=== PATIENT | female | born 1975 | race Two or more races ===

== ENCOUNTER 2023-04-03 09:21 | Inpatient (IN) | payer OTHER ==
[~2023-04-03] VITALS: Ht 167.6 cm; Wt 24.0 kg
[2023-04-04] MEDS ORDERED: LOSARTAN-HCTZ1 EAC2 PO (10:01)
[2023-04-04] MEDS ORDERED: SYNTHROID150 MCG PO (10:01)
[2023-04-08] MEDS ORDERED: NAPR500T14 PO (13:02)
[2023-04-08] MEDS ORDERED: Tylenol #3 PO (13:02)
== END 2023-04-08 13:32 | disposition home or self-care (01) | DRG 743 ==
LOC: SURG 04-06 08:45 → OB/GYN 04-06 11:36 → O/R 04-06 11:36 → OB/GYN 04-06 20:31 → SURG 04-06 21:30 → OB/GYN 04-08 13:32
PROVIDERS: ADMIT Obstetrics & Gynecology; ATTEND Obstetrics & Gynecology
PROC: 0UT7FZZ Resection of Bilateral Fallopian Tubes, Via Natural or Artificial Opening With Percutaneous Endoscopic Assistance (ICD-10-PCS; 2023-04-06)
PROC: 0DNU4ZZ Release Omentum, Percutaneous Endoscopic Approach (ICD-10-PCS; 2023-04-06)
PROC: 0UT2FZZ Resection of Bilateral Ovaries, Via Natural or Artificial Opening With Percutaneous Endoscopic Assistance (ICD-10-PCS; 2023-04-06)
PROC: 0TJB8ZZ Inspection of Bladder, Via Natural or Artificial Opening Endoscopic (ICD-10-PCS; 2023-04-06)
PROC: 0UT9FZZ Resection of Uterus, Via Natural or Artificial Opening With Percutaneous Endoscopic Assistance (ICD-10-PCS; principal; 2023-04-06 21:30)
DX: D25.1 Intramural leiomyoma of uterus (principal); D25.2 Subserosal leiomyoma of uterus; N80.03 Adenomyosis of the uterus; Z20.822 Contact with and (suspected) exposure to COVID-19; N73.6 Female pelvic peritoneal adhesions (postinfective)

== ENCOUNTER 2023-04-22 18:19 | Emergency (ER) | payer OTHER ==
[~2023-04-22] VITALS: Ht 167.6 cm; Wt 79.4 kg
[~2023-04-22 18:19] MED LIST: LOSARTAN-HCTZ1 EAC2 PO; NAPR500T14 PO; SYNTHROID150 MCG PO; Tylenol #3 PO
[2023-04-23] MEDS ORDERED: CEPHALEXIN500 MG PO (13:29)
== END 2023-04-23 13:37 | disposition home or self-care (01) ==
LOC: ER 18:19
DX: L76.34 Postprocedural seroma of skin and subcutaneous tissue following other procedure (principal); R10.9 Unspecified abdominal pain; Z20.822 Contact with and (suspected) exposure to COVID-19; I10 Essential (primary) hypertension
CPT/HCPCS: 36415 ×2; 74177; Q9965